=== PATIENT | male | born 1975 | race African-American/Black ===

== ENCOUNTER 2024-01-10 07:53 | Day surgery (SDC) | payer OTHER ==
[2024-01-08 15:39] VITALS: BMI 24.3
[2024-01-10 09:16] VITALS: RESP 18
[2024-01-10 10:04] VITALS: BP 110/56; PULSE 68; TEMP 96
== END 2024-01-10 09:58 | disposition home or self-care (01) ==
LOC: FASU-ENDO 07:53
PROVIDERS: ATTEND Internal Medicine Gastroenterology
PROC: 0DBL8ZX Excision of Transverse Colon, Via Natural or Artificial Opening Endoscopic, Diagnostic (ICD-10-PCS; 2024-01-10)
PROC: 0DBN8ZX Excision of Sigmoid Colon, Via Natural or Artificial Opening Endoscopic, Diagnostic (ICD-10-PCS; principal; 2024-01-10 08:38)
DX: Z12.11 Encounter for screening for malignant neoplasm of colon (principal); D12.5 Benign neoplasm of sigmoid colon; K63.5 Polyp of colon
CPT/HCPCS: 88305-TC